=== PATIENT | male | born 1975 | race Caucasian/White ===

== ENCOUNTER 2024-04-01 12:10 | Emergency (ER) | payer MEDICAID ==
[~2024-04-01] VITALS: Ht 182.9 cm; Wt 91.0 kg
[2024-04-01 12:14] VITALS: O2SAT 98
[2024-04-01 12:40] LABS: BASOPHILS % 0.7 % (0.0-2.0); EOSINOPHILS % 5.1 % (0.0-5.0); HEMATOCRIT. 35.6 % (42.0-52.0); HEMOGLOBIN. 12.2 g/dL (14.0-18.0); LYMPHOCYTES % 11.2 % (20.0-50.0); MEAN CORPUSCULAR HEMOGLOBIN 30.3 pg (28.0-32.0); MEAN CORPUSCULAR HGB CONC 34.1 g/dL (31.0-37.0); MEAN CORPUSCULAR VOLUME 88.9 fL (80.0-94.0); MEAN PLATELET VOLUME 8.1 fl (7.4-10.4); MONOCYTES % 10.3 % (2.0-8.0); NEUTROPHILS % 72.7 % (40.0-76.0); PLATELET 144 x1000/uL (130-400); RED BLOOD CELL COUNT 4.01 mill/uL (4.7-6.1); RED CELL DISTRIBUTION WIDTH 14.4 % (11.6-14.6); WHITE BLOOD COUNT 10.5 x1000/uL (4.5-11.0)
[2024-04-01 12:51] LABS: CHLORIDE 98 mEq/L (98-107); INR 0.9; POTASSIUM 3.8 mEq/L (3.5-5.1); PROTHROMBIN TIME 10.5 sec (9.6-11.0); SODIUM 132 mEq/L (136-145)
[2024-04-01 12:52] LABS: CALCIUM 8.8 mg/dL (8.7-10.4); CARBON DIOXIDE 27 mEq/L (21-32)
[2024-04-01 12:57] LABS: GLUCOSE 80 mg/dL (70-105); UREA NITROGEN BLOOD 24 mg/dL (9-23)
[2024-04-01 12:58] LABS: TROPONIN I HIGH SENSITIVITY 7 ng/L (3.0-53)
[2024-04-01 12:59] LABS: ETHANOL BLOOD < 10 mg/dL (<10)
[2024-04-01] MEDS: HYDRALAZINE 20MG/ML VIAL IV ONE (13:22)
[2024-04-01 14:24] VITALS: TEMP 97.4
[2024-04-01 14:31] LABS: TROPONIN I HIGH SENSITIVITY 6 ng/L (3.0-53)
[2024-04-01 16:04] VITALS: BP 170/94; PULSE 70; RESP 11
== END 2024-04-02 17:00 | disposition home or self-care (01) ==
LOC: ER 12:10 → CANBEDREQ 16:00 → ER 04-02 17:00
DX: R53.1 Weakness (principal); R51.9 Headache, unspecified; I10 Essential (primary) hypertension; N28.9 Disorder of kidney and ureter, unspecified; Z98.890 Other specified postprocedural states
CPT/HCPCS: 80048; 80320; 83880; 83605; 85025; 85610; 87040; 84484; 36415; 84145; 71045; 70450; 93005; 96374; 99285; J0360; G0480